=== PATIENT | male | born 1955 | race Hispanic/Latino ===

== ENCOUNTER 2020-05-19 19:21 | Emergency (ER) | payer OTHER ==
[~2020-05-19] VITALS: Ht 165.1 cm; Wt 77.1 kg
--- NOTE | 2020-05-19 19:28 | Emergency Department Note ---
History of Present Illnes History of Present Illness Chief Complaint: COVID PUI History of Present Illness This is a 64 year old male with a recent diagnosis of COVID-19 virus presents to the ED for evaluation of back pain and left shoulder/chest pain. Seen at bedside nontoxic appearing . Patient with prior h/o of CAD. Historian: Patient Arrival Mode: Car Onset (how long ago): day(s) (4) Location: posterior chest wall Radiation: Reports non-radiation Severity: moderate Duration (how long): day(s) (4) Timing of current episode: constant Progression: worsening Chronicity: new Context: Reports recent illness Relieving factors: none Exacerbating factors: none Associated symptoms: Reports cough, Reports shortness of breath; Denies chest pain Treatments prior to arrival: none Past Medical/Family History Physician Review I have reviewed the patient's past medical and family history. Any updates have been documented here. Past Medical History Recent Fever: Yes Clinical Suspicion of Infectio: Yes New/Unexplained Change in Ment: No Past Medical History: CAD Past Surgical History: None Social History Smoking Cessation: Never Smoker Alcohol Use: None Any Illegal Drug Use: No Review of Systems Review of Systems Constitutional: Reports no symptoms EENTM: Reports no symptoms Cardiovascular: Reports no symptoms Respiratory: Reports dyspnea Gastrointestinal: Reports no symptoms Genitourinary: Reports no symptoms Musculoskeletal: Reports no symptoms Integumentary: Reports no symptoms Neurological: Reports no symptoms Psychological: Reports no symptoms Endocrine: Reports no symptoms Hematological/Lymphatic: Reports no symptoms Physical Exam Related Data Allergies: Coded Allergies: Penicillins (Verified Allergy, Intermediate, RESPIRATORY DISTRESS/RASH, 05/19/20) Vital signs reviewed: Yes Physical Exam CONSTITUTIONAL Constitutional: Present well-developed, Present well-nourished HENT HENT: Present normocephalic, Present atraumatic, Present oropharynx clear/[address], Present nose normal HENT L/R: Present left ext ear normal, Present right ext ear normal EYES Eyes: Reports PERRL, Reports conjunctivae normal NECK Neck: Present ROM normal PULMONARY Pulmonary: Present effort normal, Present breath sounds normal CARDIOVASCULAR Cardiovascular: Present regular rhythm, Present heart sounds normal, Present capillary refill normal, Present normal rate GASTROINTESTINAL Abdominal: Present soft, Present nontender, Present bowel sounds normal GENITOURINARY Genitourinary: Present exam deferred SKIN Skin: Present warm, Present dry MUSCULOSKELETAL Musculoskeletal: Present ROM normal NEUROLOGICAL Neurological: Present alert, Present oriented x 3, Present no gross motor or sensory deficits PSYCHOLOGICAL Psychological: Present mood/affect normal, Present judgement normal Results Laboratory Lab results reviewed: Yes Imaging Imaging results reviewed: Yes Impressions [place] [id number] Patient Name: MARY VELAZQUEZ MR #: [id number] : 1955 Age/Sex: 64/M Req #: [id number] Adm Physician: Ordered by: REMA DA SILVA DO Report #: [id number] Location: ER Room/Bed: Procedure: [id number] DX/CHEST SINGLE (PORTABLE) Exam Date: 05/19/20 Exam Time: 2045 REPORT STATUS: Signed EXAMINATION: CHEST SINGLE (PORTABLE) INDICATION: ^Y ^left chest wall discomfort ^[id number] ^2045 COMPARISON: None FINDINGS: TUBES and LINES: None. LUNGS: Normal lung volumes. Lungs are clear. No consolidations. PLEURA: No pleural effusion or pneumothorax. HEART AND MEDIASTINUM: The cardiomediastinal silhouette is unremarkable. Sternotomy wires and CABG changes. BONES AND SOFT TISSUES: No acute osseous lesion. Soft tissues are unremarkable. UPPER ABDOMEN: No free air under the diaphragm. IMPRESSION: No acute thoracic radiographic abnormality. Signed by: Willow Haines MD on 05/19/2020 10:14 PM Dictated By: WILLOW HAINES MD 13 Transcribed By: LYNDA on 05/19/202213 COPY TO: REMA DA SILVA DO~ Procedures 12 Lead ECG Interpretation ECG Interpretation : ECG: ECG 1 [employer]: Interpreted by ED physician Date: May 19, 2020 Time: 19:58 Prior ECG tracings: reviewed Rhythm: sinus rhythm Rate: normal BPM: 62 QRS axis: normal Conduction: right bundle branch block ST segments normal: Yes T waves normal: Yes Q waves: V1, V2 Clinical Impression: non-specific ECG Assessment & Plan Medical Decision Making MDM 64 yom with h/o CABG, recent dx of COVID-19 . Diff Dx of ACS, COVID-19 PUI ,URI, Assessment & Plan Final Impression: (1) COVID-19 (2) Atypical chest pain Depart Disposition: HOME, SELF-CARE REMA DA SILVA DO May 19, 2020 19:28
[2020-05-19] MEDS ORDERED: ASPIRIN 81 MG CHEW TAB PO ONE (19:45)
[2020-05-19 20:22] LABS: EOSINOPHILS % 0.2 % (0.0-6.0); HEMATOCRIT 42.5 % (38.2-49.6); HEMOGLOBIN 14.2 g/dL (14.0-18.0); LYMPHOCYTES # (AUTO) 1.5 (1.0-3.2); LYMPHOCYTES % 36.5 % (18.0-39.1); MEAN CORPUSCULAR HEMOGLOBIN 30.7 pg (28-32); MEAN CORPUSCULAR HGB CONC 33.4 g/dL (31-35); MEAN CORPUSCULAR VOLUME 91.8 fL (81-99); MONOCYTES # (AUTO) 0.6 (0.2-0.8); MONOCYTES % 13.2 % (4.4-11.3); NEUTROPHILS # (AUTO) 2.1 (2.1-6.9); NEUTROPHILS % 49.9 % (38.7-80.0); PLATELET COUNT 185 x10e3/uL (140-360); RED BLOOD COUNT 4.63 x10e6/uL (4.3-5.7); RED CELL DISTRIBUTION WIDTH 13.2 % (11.7-14.4)
[2020-05-19 20:42] LABS: ALANINE AMINOTRANSFERASE 30 IU/L (0-55); ALBUMIN 4.2 g/dL (3.5-5.0); ALBUMIN/GLOBULIN RATIO 1.2 (0.8-2.0); ALKALINE PHOSPHATASE 66 IU/L (40-150); ANION GAP 17.3 mmol/L (8-16); BLOOD UREA NITROGEN 12 mg/dL (7-26); BUN/CREATININE RATIO 13 (6-25); CALCIUM 9.2 mg/dL (8.4-10.2); CARBON DIOXIDE 23 mmol/L (22-29); CHLORIDE 104 mmol/L (98-107); CREATINE KINASE 54 IU/L (30-200); CREATININE, SERUM 0.89 mg/dL (0.72-1.25); EST GLOMERULAR FILTRATION RATE > 60 ML/MIN (60-); GLUCOSE 94 mg/dL (74-118); POTASSIUM 4.3 mmol/L (3.5-5.1); SODIUM 140 mmol/L (136-145)
--- OUTSIDE RECORDS SUMMARY | 2020-05-19 22:12 | XMS REPORT | Continuity of Care Document ---
Author Author [facility] t Organization [facility] Address [address] [place] [address] Phone Unavailable Care Team Providers Care Print Line Tailer Name Role Phone NONSTAFF PCP Unavailable Monse KIM, Kiko Attphys Gila KIM, Warren Attphys Randa Roy Attphys Smooth CAMERON Attphys Unavailable HAMPEL, DON Attphys Unavailable Randa Roy Admphys HAMPEL, DON Admphys Unavailable Payers Payer Name Policy Type Policy Number Effective Date Expiration Date Emani herrera [employer] [id number] 2018 00:00:00 [facility] [address] [id number] 2015 00:00:00 [facility] Problems Condition Name Condition Details Condition Category Status Onset Date Resolution Date Last Treatment Date Treating Clinician Comments Source NSTEMI NSTE AK Active 02/18/2019 [facility] Active 2019-02-18 00:00:00 2019-02-26 13:05:00 [facility] HEART ATTACK HEAR T ATTACK Active 02/18/2019 [facility] Diagnosis Active 2019-02-18 00:00:00 2019-02-18 15:01:00 Abel Stinson CAD CAD Active 04/15/2013 [facility] Active 2013-04-15 00:00:00 2013-08-30 14:40:00 M sofia Stinson COMPLETE HEART VAS SCREENING C OMPLETE HEART VAS SCREENING Active 03/27/2013 [facility] Active 2013-03-27 09: 00:00 2013-03-27 09:10:00 Abel Stinson 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 Active Problem 02/28/2017 Corazon Murrieta Problem Active 2017-02-28 02:45:24 Royal rial Milad Hypercholesteremia Hype rcholesteremia Active Problem 02/28/2017 Corazon Murreita Problem Active 2017-02-28 02:45:24 Abel Stinson Hypothyroid Hypo thyroid Active Problem 02/28/2017 Corazon Murrieta Problem Active 2017-02-28 02:45:24 Abel Stinson Nonrheumatic tricuspid valve disorder Nonrheumatic tricuspid valve disorder Active Problem 02/28/2017 Corazon Murrieta Problem Active 2017-02-28 02:45:24 [facility] ial [facility] Nonrheumatic mitral (valve) insufficiency Nonrheumatic mitral (valve) insufficiency Active Problem 02/28/2017 Corazon Murrieta Problem Active 2017-02-28 02:45:24 Memor ial Milad LVH (left ventricular hypertrophy) due to hypertensive disease LVH (left ventricular hypertrophy) due to hypertensive disease Active Problem 02/28/2017 Corazon Edwardsgunjan Problem Active 2017-02-28 02:45:2 4 Abel Stinson Atheroscler of [place] artery of both legs with intermi t claudication Atheroscler of [place] artery of both legs with intermit claudication Active Problem 02/28/2017 Corazon Edwardsgunjan Problem Active 2017-02-28 02:45:24 Abel Stinson Carotid arterial disease Acevedo tid arterial disease Active Problem 02/28/2017 Corazon Munguialuis daniel Problem Active 20 11-03-06 02:45:24 Abel Stinson Exercise-induced shortness of breath Exercise-induced shortness of breath Active Problem 02/28/2017 Corazon Munguiaoudi Problem Ac tive 2017-02-28 02:45:24 [facility] Abnormal EKG Abno rmal EKG Active Problem 02/28/2017 Mohamed O Ezraoudi Problem Active 2017-02-28 02:45:24 [facility] Angina pectoris Opal na pectoris Active Problem 09/29/2015 Mohamed O Ezraoudi Problem Active 2015-09-29 03:45:01 [facility] Atherosclerosis of coronary artery bypass graft with a ngina pectoris 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 Active Problem 09/29/2015 Mohamed O Ezraoudi Problem Active 2015-09-29 03:45:01 [facility] Mitral regurgitation Mitr al regurgitation Active Problem 09/29/2015 Mohamed O Ezraoudi Problem Active 2015-09-29 03:45:01 [facility] Hypercholesterolemia Hype rcholesterolemia Active Problem 09/29/2015 Mohamed O Ezraoudi Problem Active 2015-09-29 03:45:01 [facility] Hypothyroidism Hypo thyroidism Active Problem 09/29/2015 Navyaamed O Jerrydi Problem Active 2015-09-29 03:45:01 [facility] Atherosclerosis of [place] arteries of th e extremities with intermittent claudication Atherosclerosis of [place] arteries of the extremities with intermittent claudication Active Problem 09/29/2015 Navyaamed O Ezraoudi Problem Active 2015-09-29 03:45:01 Royalkortney whitlock Milad Carotid art occ w/o infarc Car otid art occ w/o infarc Active Problem 09/29/2015 Navyaamed O Ezraoudi Problem Active 2015-09-29 03:45:01 [facility] Hypercholesteremia Hype rcholesteremia Active Problem 01/05/2016 Navyaamed O Ezraoudi Problem Active 2016-01-05 02:45:01 [facility] Abnormal EKG Abno rmal EKG Active Problem 09/29/2015 Navyaamed O Ezraoudi Problem Active 2015-09-29 03:45:01 [facility] Exercise-induced shortness of breath Exercise-induced shortness of breath Active Problem 09/29/2015 Navyaamed O Ezraoudi Problem Ac tive 2015-09-29 03:45:01 [facility] NON-ST ELEVATION (NSTEMI) MYOCARDIAL INF NON-ST ELEVATION (NSTEMI) MYOCARDIAL INF Active [facility] Active 2019-02-26 13:05:00 [facility] Allergies, Adverse Reactions, Alerts Allergy Name Allergy Type Status Severity Reaction(s) Onset Date Inacti ve Date Treating Clinician Comments Source Penicillins DA Active AK 2019-02-15 00:00:00 [facility] Penicillin Allergy to Substance Active Mild SWELLING 2015-10-01 00:00:0 0 [facility] Penicillin Penicillin Active Hives/Flare up 2014-04-30 00:00:00 [facility] Penicillins DA Active [place] 2014-04-19 00:00:00 [facility] penicillins penicillins Active [facility] Social History Social Habit Start Date Stop Date Quantity Comments Source Smoking 2016-07-20 00:00:00 2016-07-20 00:00:00 [facility] Medications Ordered Medication Name Filled Medication Name Start Date Stop Da te Current Medication? Ordering Clinician Indication Dosage Frequency Signature (SIG) Comments Components Source Nitroglycerin 0.4 MG Sublingual Tablet 2019-02-20 16:10:00 Yes 0.4 mg = 1 tab, SL, Q5Min, PRN Chest pain, # 25 tab, 1 Refill(s) [facility] clopidogrel 75 mg oral tablet 2019-02-20 16:10:00 Yes 75 mg = 1 tab, PO, Daily, # 30 tab, 11 Refill(s) Tierra asif Banks acetaminophen-codeine #3 2019-02-19 20:26:00 No Notes: Do not exceed 4gm/day of acetaminophen. (Same as: Tylenol with Codeine # 3) [facility] Ondansetron 2019-02-19 20:26:00 No Notes: (Same as: Conrad) MEDICATION WASTE Product Size: 4 mg Product Wasted: ___ mg [facility] Acetaminophen 2019-02-19 20:26:00 No Notes: Do not exceed 4 gm/day. (Same as: Tylenol) [facility] Sodium Chloride 0.9% IV 750 mL 2019-02-19 20:26:00 No 750 mL, Rate: 75 ml/hr, Infuse over: 10 hr, Route: IV, Dosing Weight 59.091 kg, Total Volume: 750, Start date: 02/19/19 15:26:00 CDT, Duration: 10 hr, Stop date: 02/20/19 1:25:00 CDT, 1.66, m2 [facility] Milad Aspirin 2019-02-19 17:00:00 No Notes: Do not crush or chew. (Same As: Ecotrin) Abel Stinson 24 HR Metoprolol Tartrate 25 MG Extended Release Tablet [Top rol] 2019-02-19 14:00:00 No Notes: (Same as: Toprol XL) D o Not Crush Abel Stinson Plavix 2019-02-19 14:00:00 No Notes: (Same As: Plavix) Abel Stinson Crestor 2019-02-19 02:00:00 No Notes: Same as Crestor [facility] Mil[facility] Aspirin 2019-02-18 22:18:00 No Notes: Do not crush or chew. (Same As: Ecotrin) Abel Stinson Lovenox 2019-02-18 22:16:00 No 60 mg, Route: SUB-Q, ONCE, Dosing Weight 59.091, kg, Start date: 02/18/19 17:16:00 CDT, Stop date: 02/18/19 17:16:00 CDT [facility] Banks tamsulosin 0.4 mg oral capsule 2019-02-18 22:01:00 Yes 0.4 mg = 1 cap, PO, Daily, # 30 cap, 0 Refill(s) [facility] clopidogrel 75 MG Oral Tablet [Plavix] 2019-02-18 22:01:00 No 75 mg = 1 tab, PO, Daily, # 30 tab, 0 Refill(s) [facility] Milad atorvastatin 40 MG Oral Tablet [Lipitor] 2019-02-18 22:01:00 Yes 40 mg = 1 tab, PO, Bedtime, # 90 tab, 1 [facility] MG Oral Tablet [CLAIMS ACCOUNT MANAGER Thyroid] 2019-02-18 22:01:00 Yes 60 mg = 1 tab, PO, Daily, 0 Refill(s) [facility] 81 MG Chewable Tablet 2019-02-18 22:01:00 Yes 81 mg = 1 tab, PO, Daily, tab, 0 Refill(s) Abel shannon metoprolol succinate 25 mg oral capsule, extended release 2019-02-18 22:01:00 Yes 25 mg = 1 cap, PO, Daily, 0 Refi ll(s) Abel Stinson Lovenox 2019-02-18 21:55:00 No Notes: Nurse to ensure documentation of patient education per anticoagulation policy. (Same as: Lovenox) [facility] Saline Flush 0.9% 2019-02-18 19:05:00 No Notes: (Same as: BD Posiflush) [facility] C[facility] 2017-02-28 02:45:24 Yes Taylor Murrieta 1 t ablet [facility] Metoprolol Succinate ER 2016-12-23 02:45:07 Yes Taylor rivas TAKE ONE (1) TABLET(S) BY MOUTH ONCE A DAY. Memor sondra Banks Clopidogrel Bisulfate 2016-01-02 02:45:52 Yes Taylor Munguiaoudi 1 tablet [facility] Clopidogrel Bisulfate 2016-01-02 02:45:02 Yes Taylor Edwardsdi 1 tablet [facility] Metoprolol Succinate 2014-10-21 03:46:03 Yes Taylor Edwardsdi 1 tablet [facility] Aspirin Adult Low Strength 2014-05-08 03:00:34 Yes Allen Murrieta 1 tablet [facility] Thyroid 2014-05-08 03:00:34 Yes Corazon Edwardsdi 1 tablet [facility] Aspirin 81 Mg Tab.chew Aspirin 81 Mg Tab.chew Yes 81 Daily [facility] Clopidogrel Bisulfate (Clopidogrel) 75 Mg Tablet Clopi dogrel Bisulfate (Clopidogrel) 75 Mg Tablet Yes 75 Daily [facility] Losartan Potassium 25 Mg Tablet Losartan Potassium 25 Mg Tablet Yes 50 Daily [facility] Metoprolol Tartrate 25 Mg Tablet Metoprolol Tartrate 25 Mg Tablet Yes 25 Daily [facility] Rosuvastatin Calcium (Crestor) 20 Mg Tablet Rosuvastat in Calcium (Crestor) 20 Mg Tablet Yes 20 Daily [facility] Tamsulosin Hcl (Flomax*) 0.4 Mg Cap Tamsulosin Hcl (Flomax*) 0.4 Mg C ap Yes .4 Before Supper [facility] Thyroid,Pork ([place] Thyroid) 60 Mg Tablet Thyroid,Por k ([place] Thyroid) 60 Mg Tablet Yes 60 Daily [facility] Alfuzosin Hcl 10 Mg Tab.er.24h, 10 Mg Oral Alfuzosin H cl 10 Mg Tab.er.24h, 10 Mg Oral 2018-01-09 00:00:00 No 10 Daily [facility] Hydrocodone Bit/Acetaminophen (Metz 7.5-325 Tablet) 1 Each Tablet, 1 Ea Oral Hydrocodone Bit/Acetaminophen (Metz 7.5-325 Tablet) 1 Each Tablet, 1 Ea Oral 2018-01-09 00:00:00 No 1 Every 6 Hours as nee ded for Pain [facility] Levofloxacin (Levaquin) 500 Mg Tablet, 500 Mg Oral Lev ofloxacin (Levaquin) 500 Mg Tablet, 500 Mg Oral 2018-01-09 00:00:00 No 500 D aily [facility] Ondansetron (Zofran Odt) 4 Mg Tab.rapdis, 4 Mg Oral On dansetron (Zofran Odt) 4 Mg Tab.rapdis, 4 Mg Oral 2018-01-09 00:00:00 No 4 Every 6 Hours as needed for Pain [facility] Vital Signs Vital Name Observation Time Observation Value Comments Source Systolic (mm Hg) 2019-02-20 13:07:00 Royal rial Banks Diastolic (mm Hg) 2019-02-20 13:07:00 Mem orial Milad Respitory Rate 2019-02-20 13:07:00 Memori al Milad Temperature Oral (F) 2019-02-20 13:07:00 98.6 F [facility] Heart Rate 2019-02-20 13:07:00 [facility] Respitory Rate 2019-02-20 09:00:00 Memori al [facility] Heart Rate 2019-02-20 09:00:00 [facility] Temperature Oral (F) 2019-02-20 09:00:00 98.6 F [facility] Systolic (mm Hg) 2019-02-20 09:00:00 Royal rial Milad Diastolic (mm Hg) 2019-02-20 09:00:00 Mem orial [facility] Heart Rate 2019-02-20 05:07:00 [facility] Respitory Rate 2019-02-20 05:07:00 Memori al Mil[facility] Temperature Oral (F) 2019-02-20 05:07:00 98.5 F [facility] Systolic (mm Hg) 2019-02-20 05:07:00 Royal rial Banks Diastolic (mm Hg) 2019-02-20 05:07:00 Mem orial Milad Height 2019-02-18 21:55:00 165.1 cm [facility] BMI Calculated 2019-02-18 21:55:00 Memori al [facility] Weight 2019-02-18 21:55:00 [facility] Height 2019-02-18 18:52:00 165.1 cm [facility] Weight 2019-02-18 18:52:00 [facility] BMI Calculated 2019-02-18 18:52:00 [facility] Weight 2014-04-30 20:00:00 [facility] Height 2014-04-30 20:00:00 [facility] Temperature Oral (F) 2014-04-30 20:00:00 96.7 F [facility] Heart Rate 2014-04-30 20:00:00 [facility] Diastolic (mm Hg) 2014-04-30 20:00:00 Mem orial Milad Systolic (mm Hg) 2014-04-30 20:00:00 Royal whitlock [facility] Height 2013-03-27 15:13:00 165.1 cm [facility] Weight 2013-03-27 15:13:00 [facility] Height 2013-03-27 15:08:00 167.64 cm [facility] Weight 2013-03-27 15:08:00 [facility] Procedures This patient has no known procedures. Encounters Start Date/Time End Date/Time Encounter Type Admission Type [facility] Care Department Encounter ID Source 2019-07-23 10:36:01 2019-07-23 13:13:24 [facility] [id number] 2019-07-10 09:13:59 2019-07-10 10:51:08 [facility] [id number] 2019-06-28 10:23:43 2019-06-28 10:38:43 Office Visit Warren Yeh i [facility] [id number] 2019-02-18 13:43:05 2019-02-20 12:50:00 Outpatient Mirta Roy MHSE MHSE [id number] 2019-02-18 15:22:00 2019-02-18 13:43:00 Inpatient E MHSE CAR [id number] 2018-11-24 20:10:00 2018-11-24 22:15:00 Departed Emergency Room [address] [facility] [id number] [facility] 2018-01-16 08:50:00 2018-01-17 13:45:00 Discharged Inpatient DON SNYDER [facility] [id number] [facility] 2017-03-28 10:48:00 2017-03-29 16:03:[address] [facility] [id number] [facility] 2017-01-11 09:14:00 2017-01-11 09:14:00 Outpatient Corazon Murrieta [place] [id number] [employer] 2016-12-22 17:01:00 2016-12-22 17:01:00 Outpatient Corazon Murrieta MD [place] [id number] [employer] 2016-10-14 14:53:00 2016-10-14 14:53:00 Outpatient MD TEETEE Shetty MD [place] [id number] [employer] 2016-10-12 12:24:00 2016-10-12 12:24:00 Outpatient MD TEETEE Shetty MD [place] [id number] [employer] 2016-09-28 17:17:00 2016-09-28 17:17:00 Outpatient MD TEETEE Shetty MD [place] [id number] [employer] 2016-01-04 10:12:00 2016-01-04 10:12:00 Outpatient MD TEETEE Shetty MD [place] [id number] [employer] 2015-12-31 15:39:00 2015-12-31 15:39:00 Outpatient MD TEETEE Shetty MD [place] [id number] [employer] 2015-12-31 15:31:00 2015-12-31 15:31:00 Outpatient MD TEETEE Shetty MD [place] [id number] [employer] 2015-12-31 15:28:00 2015-12-31 15:28:00 Outpatient MD TEETEE Shetty MD [place] [id number] [employer] 2015-12-28 15:13:00 2015-12-28 15:13:00 Outpatient MD TEETEE Shetty MD [place] [id number] [employer] 2015-09-28 14:53:00 2015-09-28 14:53:00 Outpatient MD TEETEE Shetty MD [place] [id number] [employer] 2014-10-20 08:54:00 2014-10-20 08:54:00 [place] [id number] [employer] 2014-04-30 15:00:00 2014-04-30 15:00:00 [place] [id number] [employer] Results Test Description Test Time Test Comments Results Result Comments Source LIPIDS 2019-02-20 09:50:00 48 Domonique amaro Banks LIPIDS 2019-02-20 09:50:00 Test Item VLDL (test code = VLDL) 14 1 [facility] [id number] 09:50:0067[facility] WtfiqmbQHOEPL3276-84-01 09:50:00* Test Item Value Reference Range Interpretation Comments CHD Risk (test code = CHD Risk) 2.69 1 4.00-7.30 Memorial [id number] 09:50:67724Maobkajo GkpqmboSHYGOY9654-01-79 09:50:0071[facility] HermannCARDIAC [id number] 19:10:91417Mxtsuauk Milad CARDIAC [id number] 19:10:002.10[facility] HermannCHEM [id number] 19:10:88839Peopjvyi HermannCHEM [id number] 19:10:0093[facility] HermannCHEM [id number] 19:10:009.2[facility] HermannCHEM [id number] 19:10:004.1 [facility] HermannCHEM [id number] 19:10:0025[facility] HermannCHEM PANEL 2019-02-18 19:10:008.2[facility] HermannCHEM [id number] 19:10:28508Rzcwxdyk HermannCHEM YCRIZ1109-40-20 19:10:000.87Mem[facility] HermannCHEM [id number] 19:10:0015Mem[facility] HermannCHEM [id number] 19:10:89125Xrshgukp HermannCHEM [id number] 19:10:0093[facility] HermannCHEM RWBHI0108-77-12 19:10:003.8 [facility] HermannCHEM [id number] 19:10:0038[facility] HermannCHEM PANEL 2019-02-18 19:10:0028Mem[facility] HermannCHEM [id number] 19:10:0082Mem[facility] HermannCHEM [id number] 19:10:000.6[facility] HermannCHEM [id number] 19:10:00* Test Item Value Reference Range Interpretation Comments B/C Ratio (test code = B/C Ratio) 17 1 6-25 [facility] HermannCHEM [id number] 19:10:009.1[facility] HermannCHEM PANEL 2019-02-18 19:10:004.4[facility] HermannCHEM [id number] 19:10:00* Test Item Value Reference Range Interpretation Comments A/G Ratio (test code = A/G Ratio) 0.9 1 0.7-1.6 [facility] [id number] 19:10:00* Test Item Value Reference Range Interpretation Comments PTT (test code = PTT) 41.5 s 22.9-35.8 [facility] FhzudhnJLLZZSJQNT6233-04-25 19:10:0092.6[facility] HermannHEMATOLOGY 2019-02-18 19:10:0016.0[facility] EphlwenAPLOQQUCGM7778-48-47 19:10:005.25[facility] SvsqgamELOIDBPIBX2067-38-61 19:10:0048.7[facility]orial CbcjomdDNBSIQBDND5308-56-88 19:10:00* Test Item Value Reference Range Interpretation Comments MCH (test code = MCH) 30.4 pg 27.0-31.0 [facility] XdgeeuyUJRVQCMORM8776-31-81 19:10:006.6[facility] HermannHEMATOLOGY 2019-02-18 19:10:55230Usnkmott JrvilmyQSFENLXRNN7774-24-37 19:10:0013.7[facility]orial HjbhvauJNVWUMVVST7346-29-83 19:10:009.1[facility] UtsviyiSGOENROQDO4365-71-91 19:10:0032.8[facility]orial ZfkepwkECKRTLNMTR1735-90-09 19:10:00* Test Item Value Reference Range Interpretation Comments INR (test code = INR) 0.93 1 0.85-1.17 [facility] ApaptftQMJXFNMZOM6587-09-53 19:10:00* Test Item Value Reference Range Interpretation Comments PT (test code = PT) 12.3 s 12.0-14.7 [facility] ZkplvrpJFCKRVKEOD9213-59-41 19:10:001.0[facility] HermannHEMATOLOGY 2019-02-18 19:10:004.3[facility] ExgqhnmCMSWDLINXT1888-46-27 19:10:001.4Memorial CldbzqyMWKERQMZJF4690-54-01 19:10:000.2Memorial ZpzkqkwCYWRUKEVZY2896-32-48 19:10:0013.2[facility]orial BnmamcfJIKJUPUJCD4619-08-55 19:10:0020.5[facility] Milad [id number] 19:10:0065.1[facility]orial YwkzohrCFYLZDXYKX2368-08-61 19:10:00 0.9Memorial RjzwqhiGZVVJUNJWU9658-82-92 19:10:000.1[facility] HermannTROPONIN-I 2019-02-17 13:11:00* Test Item Value Reference Range Interpretation Comments TROPONIN-I (test code = TROPI) 2.290 ng/mL 0-0.045 [id number] 13:43:00* Test Item Value Reference Range Interpretation Comments TROPONIN-I (test code = TROPI) 6.280 ng/mL 0-0.045 Results called to [facility] V.LAB.DRP 02/16/19 1343 [id number] 08:59:00* Test Item Value Reference Range Interpretation Comments GLYCOSYLATED HEMOGLOBIN (HA1C) (test code = GLYHGB) 5.8 % HbA1 4. 8-6.0 N ESTIMATED AVERAGE GLUCOSE (test code = EAG) 120 MG/DL PT WANTS TO SPEAK WITH DR BEFORE LAB DRAW JOSE M DE LEON .V.LAB.AB02/16/19 0437 COMPREHENSIVE METABOLIC [id number] 08:45:00* Test Item Value Reference Range Interpretation Comments SODIUM (test code = NA) 142 mmol/L 136-145 N POTASSIUM (test code = K) 4.2 mmol/L 3.5-5.1 N CHLORIDE (test code = CL) 109.0 mmol/L 98-107 H CARBON DIOXIDE (test code = CO2) 27.0 mmol/L 21-32 N ANION GAP (test code = GAP) 10.2 10-20 N GLUCOSE (test code = GLU) 99 mg/dL 74-106 N BLOOD UREA NITROGEN (test code = BUN) 16 mg/dL 7-18 N GLOMERULAR FILTRATION RATE (test code = GFR) > 60 mL/min >=60 Estimated GFR by using Modified MDRD formula.Chronic kidney disease is defined as either kidney damageor GFR <60 mL/min/1.73 m2 for >3 months. CREATININE (test code = CREAT) 0.90 mg/dL 0.7-1.3 N BUN/CREATININE RATIO (test code = BUN/CREA) 17.8 10-20 N TOTAL PROTEIN (test code = PROT) 7.6 gram/dL 6.4-8.2 N ALBUMIN (test code = ALB) 3.7 g/dL 3.4-5.0 N GLOBULIN (test code = GLOB) 3.9 gram/dL 2.7-4.2 N ALBUMIN/GLOBULIN RATIO (test code = A/G) 1.0 0.75-1.50 N CALCIUM (test code = CA) 8.9 mg/dL 8.5-10.1 N BILIRUBIN TOTAL (test code = BILT) 0.90 mg/dL 0.0-1.0 N SGOT/AST (test code = AST) 42 IUnit/L 15-37 H SGPT/ALT (test code = ALT) 35 IUnit/L 12-78 N ALKALINE PHOSPHATASE TOTAL (test code = ALKP) 82 IUnit/L 45-117 N Note change in reference range due to change in reagent. PT WANTS TO SPEAK WITH BEFORE BLOOD DRAW JOSE M SANFORD 02/16/19 0436 LIPID PROFILE (CORONARY RISK)2019-02-16 08:45:00* Test Item Value Reference Range Interpretation Comments TRIGLYCERIDES (test code = TRIG) 81 mg/dL 20-150 N CHOLESTEROL (test code = CHOL) 127 mg/dL 0-200 N CHOLESTEROL/HDL RATIO (test code = CHOLHDL) 2.0 RATIO 0-4.9 N RISK ASSOCIATED WITH CHOL/HDL RATIOS: Risk Male Female1/2 AVERAGE 3.43 3.27AVERAGE 4.97 4.442X AVERAGE 9.55 7.053X AVERAGE 23.39 11.04 REFERENCE VALUE IS RELATED TO RISK LEVELS ASRECOMMENDED BY THE [place]. HEART, LUNG, AND BLOOD INST. HDL CHOLESTEROL (test code = HDL) 52 mg/dL 40-60 N LIPOPROTEIN LDL (test code = LDL) 74 mg/dL 100-129 L Reference Interval: mg/dL mmol/L Optimal <100 <2.6Near/above optimal 100-129 2.6- 3.3Borderline High 130-159 3.4-4.1High 160-189 4.1-4.9Very High >=190 >=4.9========= This LDL result is a direct measurement.========= PT WANTS TO SPEAK WITH DR BEFORE BLOOD DRAW JOSE M DE LEON .V.LAB. 02/16/19 0436 COMPREHENSIVE METABOLIC [id number] 08:38:00* Test Item Value Reference Range Interpretation Comments SODIUM (test code = NA) 142 mmol/L 136-145 N POTASSIUM (test code = K) 4.2 mmol/L 3.5-5.1 N CHLORIDE (test code = CL) 109.0 mmol/L 98-107 H CARBON DIOXIDE (test code = CO2) mmol/L 21-32 ANION GAP (test code = GAP) 10-20 GLUCOSE (test code = GLU) mg/dL 74-106 BLOOD UREA NITROGEN (test code = BUN) mg/dL 7-18 GLOMERULAR FILTRATION RATE (test code = GFR) mL/min >=60 CREATININE (test code = CREAT) mg/dL 0.7-1.3 BUN/CREATININE RATIO (test code = BUN/CREA) 10-20 TOTAL PROTEIN (test code = PROT) gram/dL 6.4-8.2 ALBUMIN (test code = ALB) g/dL 3.4-5.0 GLOBULIN (test code = GLOB) gram/dL 2.7-4.2 ALBUMIN/GLOBULIN RATIO (test code = A/G) 0.75-1.50 CALCIUM (test code = CA) mg/dL 8.5-10.1 BILIRUBIN TOTAL (test code = BILT) mg/dL 0.0-1.0 SGOT/AST (test code = AST) IUnit/L 15-37 SGPT/ALT (test code = ALT) IUnit/L 12-78 ALKALINE PHOSPHATASE TOTAL (test code = ALKP) IUnit/L 45-117 PT WANTS TO SPEAK WITH DR BEFORE BLOOD DRAW JOSE M DE LEON .V.LAB. 02/16/19 0436 LIPID PROFILE (CORONARY RISK)2019-02-16 08:38:00* Test Item Value Reference Range Interpretation Comments TRIGLYCERIDES (test code = TRIG) mg/dL 20-150 CHOLESTEROL (test code = CHOL) mg/dL 0-200 CHOLESTEROL/HDL RATIO (test code = CHOLHDL) RATIO 0-4.9 HDL CHOLESTEROL (test code = HDL) mg/dL 40-60 LIPOPROTEIN LDL (test code = LDL) mg/dL 100-129 PT WANTS TO SPEAK WITH DR BEFORE BLOOD DRAW JOSE M DE LEON .V.LAB.AB 02/16/19 [id number] W/O [id number] 08:15:00* Test Item Value Reference Range Interpretation Comments WHITE BLOOD CELL (test code = WBC) 8.5 K/mm3 4.5-12.5 N RED BLOOD CELL (test code = RBC) 4.83 mill/mm3 4.0-5.8 N HEMOGLOBIN (test code = HGB) 14.7 gram/dL 13.0-17.5 N HEMATOCRIT (test code = HCT) 44.1 % 42.0-52.0 N MEAN CELL VOLUME (test code = MCV) 91.3 fL 80-98 N MEAN CELL HGB (test code = MCH) 30.4 picogram 27.0-33.0 N MEAN CELL HGB CONCETRATION (test code = MCHC) 33.3 gram/dL 33.0-36. 0 N RED CELL DISTRIBUTION WIDTH (test code = RDW) 13.2 % 11.6-16. 2 N PLATELET COUNT (test code = PLT) 203 K/mm3 150-450 N MEAN PLATELET VOLUME (test code = MPV) 10.6 fL 6.7-11.0 N PT WANTS TO SPRAK DR BEFORE LABS JOSE M DE LEON .V.LAB.02/16/19 0437TROPONIN-I 2019-02-15 21:10:00* Test Item Value Reference Range Interpretation Comments TROPONIN-I (test code = TROPI) 2.680 ng/mL 0-0.045 HH COMMENTS TO SENIOR ENVIRONMENTAL CONSULTANT: COLLECT 3 HOURS AFTER PREVIOUS [id number]-[id number] 16:23:00* Test Item Value Reference Range Interpretation Comments D-DIMER (test code = DDIMER) 386.00 ng/mLFEU 0-500 N Clinical Cut-off value for D-Dimer is 500 ng/mL FEU. Comment: The [employer] D-Dimer assay is intended for use asan aid in the diagnosis of venous thromboembolism (VTE)[deep vein thrombosis (DVT) or pulmonary embolism (PE)].The measurement of D-Dimer should not be used as an aid inthe diagnosis of VTE, in patient with: -Therapeutic dose anticoagulant therapy for >24 hours -Fibrinolytic therapy within previous 7 days -Trauma or surgery within previous 4 weeks -Disseminated malignancies -Aortic aneurysm -Sepsis, severe infections, pneumonia, severe skin infections -Liver cirrhosis - [id number] 16:13:00* Test Item Value Reference Range Interpretation Comments TROPONIN-I (test code = TROPI) 1.380 ng/mL 0-0.045 RESULT VERIFIED BY REPEAT ANALYSIS COMMENTS TO SENIOR ENVIRONMENTAL CONSULTANT: COLLECT 3 HOURS AFTER PREVIOUS SAMPLEBASIC METABOLIC [id number] 12:20:00* Test Item Value Reference Range Interpretation Comments SODIUM (test code = NA) 141 mmol/L 136-145 N POTASSIUM (test code = K) 4.0 mmol/L 3.5-5.1 N CHLORIDE (test code = CL) 109.0 mmol/L 98-107 H CARBON DIOXIDE (test code = CO2) 25.0 mmol/L 21-32 N ANION GAP (test code = GAP) 11.0 10-20 N GLUCOSE (test code = GLU) 122 mg/dL 74-106 H BLOOD UREA NITROGEN (test code = BUN) 14 mg/dL 7-18 N GLOMERULAR FILTRATION RATE (test code = GFR) > 60 mL/min >=60 Estimated GFR by using Modified MDRD formula.Chronic kidney disease is defined as either kidney damageor GFR <60 mL/min/1.73 m2 for >3 months. CREATININE (test code = CREAT) 0.80 mg/dL 0.7-1.3 N BUN/CREATININE RATIO (test code = BUN/CREA) 17.5 10-20 N CALCIUM (test code = CA) 8.8 mg/dL 8.5-10.1 N [id number] 12:20:00* Test Item Value Reference Range Interpretation Comments TROPONIN-I (test code = TROPI) 0.498 ng/mL 0-0.045 Results called to [id number] by KENRICK 02/15/19 1220Critical results verified and read back by Nurse? Ambreen [id number] 12:09:00* Test Item Value Reference Range Interpretation Comments MAGNESIUM (test code = MAG) 2.2 mg/dL 1.8-2.4 N [id number] 12:08:00* Test Item Value Reference Range Interpretation Comments D-DIMER (test code = DDIMER) 365.00 ng/mLFEU 0-500 N Clinical Cut-off value for D-Dimer is 500 ng/mL FEU. Comment: The [employer] D-Dimer assay is intended for use asan aid in the diagnosis of venous thromboembolism (VTE)[deep vein thrombosis (DVT) or pulmonary embolism (PE)].The measurement of D-Dimer should not be used as an aid inthe diagnosis of VTE, in patient with: -Therapeutic dose anticoagulant therapy for >24 hours -Fibrinolytic therapy within previous 7 days -Trauma or surgery within previous 4 weeks -Disseminated malignancies -Aortic aneurysm -Sepsis, severe infections, pneumonia, severe skin infections -Liver cirrhosis - BASIC METABOLIC [id number] 12:06:00* Test Item Value Reference Range Interpretation Comments SODIUM (test code = NA) 141 mmol/L 136-145 N POTASSIUM (test code = K) 4.0 mmol/L 3.5-5.1 N CHLORIDE (test code = CL) 109.0 mmol/L 98-107 H CARBON DIOXIDE (test code = CO2) mmol/L 21-32 ANION GAP (test code = GAP) 10-20 GLUCOSE (test code = GLU) mg/dL 74-106 BLOOD UREA NITROGEN (test code = BUN) mg/dL 7-18 GLOMERULAR FILTRATION RATE (test code = GFR) mL/min >=60 CREATININE (test code = CREAT) mg/dL 0.7-1.3 BUN/CREATININE RATIO (test code = BUN/CREA) 10-20 CALCIUM (test code = CA) mg/dL 8.5-10.1 [id number] 12:06:00* Test Item Value Reference Range Interpretation Comments TROPONIN-I (test code = TROPI) ng/mL 0-0.045 CBC W/O [id number] 11:59:00* Test Item Value Reference Range Interpretation Comments WHITE BLOOD CELL (test code = WBC) 6.6 K/mm3 4.5-12.5 N RED BLOOD CELL (test code = RBC) 4.78 mill/mm3 4.0-5.8 N HEMOGLOBIN (test code = HGB) 14.6 gram/dL 13.0-17.5 N HEMATOCRIT (test code = HCT) 42.8 % 42.0-52.0 N MEAN CELL VOLUME (test code = MCV) 89.5 fL 80-98 N MEAN CELL HGB (test code = MCH) 30.5 picogram 27.0-33.0 N MEAN CELL HGB CONCETRATION (test code = MCHC) 34.1 gram/dL 33.0-36. 0 N RED CELL DISTRIBUTION WIDTH (test code = RDW) 12.9 % 11.6-16. 2 N PLATELET COUNT (test code = PLT) 210 K/mm3 150-450 N MEAN PLATELET VOLUME (test code = MPV) 10.6 fL 6.7-11.0 N TROPONIN I [id number] 11:54:00* Test Item Value Reference Range Interpretation Comments TROPONIN I RAPID (test code = TROPIRAP) 0.23 ng/mL <0.08 H H Please Note New Reference Range 0.00-0.079 ng/mL - Negative>or= 0.08 ng/mL - Positive The use of serial sampling and testing protocol is arecommended practice.An elevated troponin level alone is often not sufficient fordiagnosis of myocardial infarction. Troponin results obtained by different assays may vary.Evaluation of the extent of myocardial damage based onincrease of troponin would be valid only if similarmethodology is used. - XR CHEST 1 [id number] 11:50:00 FAX: Jn Lewis MD [phone] [place]: B St: REG Name: MARY KELLEY [facility] : [birth year] Age/S: 63/M [address] [facility] Unit #: [id number] Loc: [place] [address] Phys: Jn Lewis MD Acct: [id number] Dis Date: Status: REG ER PHONE #: [phone] Exam Date: 02/15/2019 1128 FAX #: [phone] Reason: CHEST PAIN EXAMS: CPT CODE: [id number] XR CHEST 1 V 88046 TECHNIQUE - XR CHEST 1 V . COMPARISON: Single view of the chest HISTORY: 63 years Male CHEST PAIN FINDINGS: Lungs: No nodules. No air space or interstitial lung disease. Lungs are normal in volume. Mediastinum and lj: No enlargement or other mass. Median sternotomy. Cardiovascular structures: No cardiomeg kelly. No abnormalities in vascular structures. Pleura/CP an gles: Clear. No pneumothorax. Bones: No osseous abnormalities. Soft tissues: No abnormalities. Tubes and lines: None. Other: None. IMPRESSION: No acute cardio pulmonary abnormalities. at 1150 Reported and signed by: Willow Garcia CC: Jn Lewis MD Technolog ist: Los DIAL(R) Trnscrd Date/Time/By : 02/15/2019 (1150) : By: Caitlin Orig Print D/T: S: 02/15/2019 (115 4) PAGE 1 Signed Report SHOULDER LEFT [id number] 02:21:00 [place] [address] Patient Name: MARY VELAZQUEZ MR #: [id number] : 1955 Age/Sex: 63/M Req #: [id number] Adm Physician: Ordered by: TEODORO CAMERON MD Report #: [id number] Location: ER Room/Bed: Procedure: [id number] 0010 DX/SHOULDER LEFT COMPLETE Exam Date: 11/25/18 E xam Time: 129 REPORT STATUS: Crystal d Shoulder left limited CPT code: 00361 Indication: Fall. Tech nique: Internal and external images of the left shoulder obtained without comp arison. Findings: There is no current dislocation. No evidence of fra cture involving humeral head. Visualized proximal shaft is intact. The clavi soniya is intact. No fracture evident involving the visualized portion of the sc apula. Portions are overlapped by the ribs on all images however. Visualized ribs and median sternotomy wires are intact. IMPRESSION: No evidenc e of acute fracture or dislocation involving left shoulder. Signed by: Dr. Kia Thomson MD on 11/25/2018 2:24 AM Dictated By: KIA THOMSON MD 3 Transcribed By: LYNDA on 11/25/18223 COPY TO: TEODORO CAMERON MD WRIST COMPLETE [id number] 02:06:00 [place] [address] Patient Name: MARY VELAZQUEZ MR #: [id number] : 1955 Age/Sex: 63/M Req #: [id number] Adm Physician: Ordered by: TEODORO CAMERON MD Report #: [id number] Location: ER Room/Bed: Procedure: 0303- 0008 DX/WRIST COMPLETE LEFT Exam Date: 11/25/18 Exam Time: 129 REPORT STATUS: Signed Exam: Hand and Wrist X-Rays (left) History: s/p fall [id number] Y Comparison: None. Findings: The area of pain was not indicated or marked. Bones: No fracture or malalignment. Subchondral cyst in the lunate. Punctate sclerotic focus in the proximal metacarpal of the se cond digit is suggestive of a bone island. Joints: Joint spaces preserved . No joint space narrowing or osteophytic lipping. Soft Tissues: No abno rmal soft tissue calcification or soft tissue defect. Impression: No acute osseous abnormality. Signed by: Dr. Kia Thomson MD on 2018 2:15 AM Dictated By: KIA THOMSON MD 4 Transcribed By: LYNDA on 11/25/18214 COPY TO: TEODORO CAMERON MD HAND 3+ VIEWS [id number] 02:06:00 [place] [address] Patient Name: MARY VELAZQUEZ MR #: [id number] : 1955 Age/Sex: 63/M Req #: [id number] [facility] Physician: Ordered by: TEODORO CAMERON MD Report #: [id number] Location: ER Room/Bed: Procedure: [id number] 0009 DX/HAND 3+ VIEWS LEFT Exam Date: 11/25/18 Exam Time: 129 REPORT STATUS: Signed Exam: Hand and Wrist X-Rays (left) History: s/p fall [id number] Y Comparison: None. Findings: The area of pain was not indicated or marked. Bones: No fracture or malalignment. Subchondral cyst in the lunate. Punctate sclerotic focus in the proximal metacarpal of the sec ond digit is suggestive of a bone island. Joints: Joint spaces preserved. No joint space narrowing or osteophytic lipping. Soft Tissues: No abnor mal soft tissue calcification or soft tissue defect. Impression: No acute osseous abnormality. Signed by: Dr. Kia Thomson MD on 2:15 AM Dictated By: KIA THOMSON MD 4 Transcribed By: LYNDA on 11/25/18214 COPY TO: TEODORO CAMERON MD HIP LEFT 2-3 VW (+/- PELVIS) 2018-11-24 21:41:00 [place] [address] Patient Name: MARY VELAZQUEZ MR #: [id number] : 1955 Age/Sex: 63/M Req #: [id number] Adm Physician: Ordered by: TEODORO CAMERON MD Report #: [id number] Location: ER Room/Bed: Procedure: [id number] 0034 DX/HIP LEFT 2-3 VW (+/- PELVIS) Exam Date: Time: REPORT STATUS: Signed H ip complete Indication: Left hip pain after fall s/p injury Y T echnique: AP and frogleg views of left hip obtained. Comparison: None Findings: Medical devices: Penile prosthesis. Bones: The cortex appears intact throughout. Trochanters appear intact. Adjacent pubic rami appear i ntact. Lower lumbar spine demonstrates no abnormalities. Joints: No degen erative changes. Soft tissues: Unremarkable. IMPRESSION: Left hip properly located. No acute traumatic pathology. Signed by: Dr. Kia Thomson MD on 11/24/2018 9:43 PM Dictated By: KIA THOMSON MD Electro nically Signed By: KIA THOMSON MD on 11/24/182142 Transcribed By: JIA Fox on 11/24/182142 COPY TO: TEODORO CAMERON MD LOWER LEG [id number] 21:06:00 [place] [address] Patient Name: MARY VELAZQUEZ MR #: [id number] : 1955 Age/Sex: 63/M Req #: [id number] Adm Physician: Ordered by: REMA GAMBLE CLAIMS ACCOUNT MANAGER Report #: [id number] Location: ER Room/Bed: Procedure: [id number] DX/LOWER LEG LEFT Exam Date: 11/24/18 Exam Time: 205 1 REPORT STATUS: Signed Tibia fi bula left CPT code: 93687 Indication: Table fell on leg Technique : AP and lateral views of the left tibia bowel on leg and fibula obtained. Comparison: None Findings: No evidence of fracture or dislocation. A well-corticated ossicle lies posterior to the lateral femoral condyle measu ring 7 mm. There is no evidence of donor site. No degenerative changes of the knee or visualized portion of the ankle. There is approximately 10 cm of subcutaneous soft tissue swelling adjacent to the middle diaphyseal third of t he fibula. No radiopaque foreign bodies in this region. There are punctate rad iodensities over the distal femur which may represent dust on the cassette. IMPRESSION: No acute fracture or dislocation. Signed by: Dr. Lisandro Thomson MD on 11/24/2018 9:09 PM Dictated By: KIA THOMSON MD El ectronically Signed By: KIA THOMSON MD on 11/24/182108 Transcribed By: Scot HAINES on 11/24/182108 COPY TO: REMA GAMBLE CLAIMS ACCOUNT MANAGER Wound [id number] 09:46:00* Test Item Value Reference Range Interpretation Comments Wound Culture (test code = 6462-6) Organism: STAPHYLOCOCCUS SP COAG NEG [facility] CenterSodium [id number] 07:45:00* Test Item Value Reference Range Interpretation Comments Sodium Level (test code = 2951-2) 141 136-145 [facility] Ixrou9151-95-62 07:45:00* Test Item Value Reference Range Interpretation Comments Potassium Level (test code = 2823-3) 4.5 3.5-5.1 [facility] HospitalChloride Wesfr4929-76-54 07:45:00* Test Item Value Reference Range Interpretation Comments Chloride Level (test code = 2075-0) 108 98-107 H [facility] HospitalCarbon Dioxide Vwsjk3337-76-47 07:45:00* Test Item Value Reference Range Interpretation Comments Carbon Dioxide Level (test code = 2028-9) 26 - [facility] HospitalAnion [id number] 07:45:00* Test Item Value Reference Range Interpretation Comments Anion Gap (test code = 08038-1) 11.5 8-16 [facility] HospitalBlood Urea Xmxuvgru2564-24-40 07:45:00* Test Item Value Reference Range Interpretation Comments Blood Urea Nitrogen (test code = 3094-0) 17 7- [facility] HospitalCreatinine2018-04-25 07:45:00* Test Item Value Reference Range Interpretation Comments Creatinine (test code = 2160-0) 1.03 0.72-1.25 [facility] HospitalBUN/Creatinine Wppzh7865-77-47 07:45:00* Test Item Value Reference Range Interpretation Comments BUN/Creatinine Ratio (test code = 3097-3) 17 6- [facility] HospitalEstimat Glomerular Filtration Rate 2018-01-17 07:45:00* Test Item Value Reference Range Interpretation Comments Estimat Glomerular Filtration Rate (test code = 33322-6) 60- >60 Ranges were taken from the National Kidney Disease Education Program and the [facility] [facility] [employer] literature.Reference ranges:60 or greater: Yydrbh93-94 ( for 3 consecutive months): Chronic kidney disease 15 or less: Kidney failureColumbus Community HospitalGlucose Nszyw0613-64-60 07:45:00* Test Item Value Reference Range Interpretation Comments Glucose Level (test code = PEC3949) 102 74-118 [facility] HospitalCalcium Gpelw8547-97-83 07:45:00* Test Item Value Reference Range Interpretation Comments Calcium Level (test code = 47741-1) 8.7 8.4-10.2 [facility] HospitalWhite Blood Mcnjp7091-90-31 07:06:00* Test Item Value Reference Range Interpretation Comments White Blood Count (test code = 6690-2) 9.73 4.8-10.8 [facility] HospitalRed Blood Aipcw1916-64-86 07:06:00* Test Item Value Reference Range Interpretation Comments Red Blood Count (test code = 789-8) 4.21 4.3-5.7 L [facility] HospitalHemoglobin2018-04-25 07:06:00* Test Item Value Reference Range Interpretation Comments Hemoglobin (test code = 63639-8) 13.0 14.0-18.0 L [facility] HospitalHematocrit2018-04-25 07:06:00* Test Item Value Reference Range Interpretation Comments Hematocrit (test code = 4544-3) 38.0 38.2-49.6 L [facility] HospitalMean Corpuscular Dftzgo3927-70-79 07:06:00* Test Item Value Reference Range Interpretation Comments Mean Corpuscular Volume (test code = 787-2) 90.3 81-99 [facility] HospitalMean Corpuscular Nlbxlxhwhm1482-01-78 07:06:00* Test Item Value Reference Range Interpretation Comments Mean Corpuscular Hemoglobin (test code = 785-6) 30.9 28-32 [facility] HospitalMean Corpuscular Hemoglobin Concent 2018-01-17 07:06:00* Test Item Value Reference Range Interpretation Comments Mean Corpuscular Hemoglobin Concent (test code = 786-4) 34.2 31-35 [facility] HospitalRed Cell Distribution Uiywr0793-23-61 07:06:00* Test Item Value Reference Range Interpretation Comments Red Cell Distribution Width (test code = 66296-5) 13.4 11.7 -14.4 [facility] HospitalPlatelet Tkvns9380-90-33 07:06:00* Test Item Value Reference Range Interpretation Comments Platelet Count (test code = 777-3) 177 140-360 [facility] HospitalNeutrophils (%) (Auto)2018-01-17 07:06:00 * Test Item Value Reference Range Interpretation Comments Neutrophils (%) (Auto) (test code = 88067-8) 74.3 38.7-80.0 [facility] HospitalLymphocytes (%) (Auto)2018-01-17 07:06:00 * Test Item Value Reference Range Interpretation Comments Lymphocytes (%) (Auto) (test code = 736-9) 15.6 18.0-39.1 L [facility] HospitalMonocytes (%) (Auto)2018-01-17 07:06:00* Test Item Value Reference Range Interpretation Comments Monocytes (%) (Auto) (test code = 5905-5) 8.9 4.4-11.3 [facility] HospitalEosinophils (%) (Auto)2018-01-17 07:06:00 * Test Item Value Reference Range Interpretation Comments Eosinophils (%) (Auto) (test code = 713-8) 0.7 0.0-6.0 [facility] HospitalBasophils (%) (Auto)2018-01-17 07:06:00* Test Item Value Reference Range Interpretation Comments Basophils (%) (Auto) (test code = 706-2) 0.2 0.0-1.0 [facility] HospitalIM GRANULOCYTES %2018-01-17 07:06:00* Test Item Value Reference Range Interpretation Comments IM GRANULOCYTES % (test code = IM GRANULOCYTES %) 0.3 0.0- 1.0 [facility] HospitalNeutrophils # (Auto)2018-01-17 07:06:00* Test Item Value Reference Range Interpretation Comments Neutrophils # (Auto) (test code = 751-8) 7.2 2.1-6.9 H [facility] HospitalLymphocytes # (Auto)2018-01-17 07:06:00* Test Item Value Reference Range Interpretation Comments Lymphocytes # (Auto) (test code = 13125-1) 1.5 1.0-3.2 [facility] HospitalMonocytes # (Auto)2018-01-17 07:06:00* Test Item Value Reference Range Interpretation Comments Monocytes # (Auto) (test code = 742-7) 0.9 0.2-0.8 H [facility] HospitalEosinophils # (Auto)2018-01-17 07:06:00* Test Item Value Reference Range Interpretation Comments Eosinophils # (Auto) (test code = 711-2) 0.1 0.0-0.4 [facility] HospitalBasophils # (Auto)2018-01-17 07:06:00* Test Item Value Reference Range Interpretation Comments Basophils # (Auto) (test code = 704-7) 0.0 0.0-0.1 [facility] HospitalAbsolute Immature Granulocyte (auto 2018-01-17 07:06:00* Test Item Value Reference Range Interpretation Comments Absolute Immature Granulocyte (auto (chanda t code = Absolute Immature Granulocyte (auto) 0.03 0-0.1 [facility] HospitalMagnesium Xtwtv3098-76-60 19:44:00* Test Item Value Reference Range Interpretation Comments Magnesium Level (test code = 60079-1) 1.8 1.3-2.1 [facility] HospitalCHEMISTRY2013-07-03 15:23:002.41[facility] ExqmxhxGBPBQEYVX4253-41-95 15:23:0080[facility] AwpabhbNOHERAZNM7244-66-25 15:23:39569Kyseqsxv GduzwjlLHEWYKWGP5675-85-96 15:23:0068[facility] PMYDCNISA2451-70-01 15:23:0078[facility] LykqxnhDMYWFBLSZ1412-47-73 15:23:005.3 [facility] JvllbgoCRYJRVDZCD0457-02-88 15:23:001.5[facility] F/U [facility] [address] [place] [address] Patient Name: MARY VELAZQUEZ MR #: [id number] : 1955 Age/Sex: 62/M Req #: [id number] Adm Physician: DON HERNANDEZ MD Ordered by: DON HERNANDEZ MD Report #: [id number] Location: MED/SURG Room/Bed: [facility] Procedure: [id number] US/US PE LVIC (NON OB) AUGUSTIN OR F/U Exam Date: Exam Time: REPORT STATUS: Signed PROCEDURE: US PELVIC (NON OB) AUGUSTIN OR F/U COMPARI SON: CT abdomen and pelvis 08/06/2015. INDICATIONS: Post Void To Eval For Urinary Retention TECHNIQUE: Grayscale transverse and sagittal transabdominal images were obtained of the pelvis. FINDINGS: Urinary bladder : Normal contour. Bilateral ureteral jets are visualized. Prevoid 5.9 x 6.6 x 6.8 cm. Volume 138.6 cc. Post void 5.3 x 4.8 x 7.7 cm. Volume 101.7 cc. Focal well-circumscribed 5.0 x 4.8 x 5.4 cm anechoic region is present ant erior to the urinary bladder. The prostate is not visualized. CONCLU MARY: Post void residual volume may represent urinary retention. Anec hoic focus anterior to the bladder may represent a prosthesis reservoir. Dictated by: Willow Doll M.D. on 01/17/2018 at 14:33 Electronically a pproved by: Willow Doll M.D. on 01/17/2018 at 14:33 Dictated By: WILLOW DOLL MD [address] scribed By: EDUARDO on 01/17/18 1433 COPY TO: DON HERNANDEZ MD CHEST 2 VIEWS [place] [address] [place] [address] Patient Name: MARY VELAZQUEZ MR #: [id number] : 1955 Age/Sex: 62/M Req #: [id number] Adm Physician: Ordered by: DON HERNANDEZ MD Report #: [id number] Location: OR Room/Bed: Procedure: [id number] DX/CHEST 2 VIEWS Exam Date: Exam Time: 1150 REPORT STATUS: Signed PROCEDURE: Frontal and lateral views of the chest. COMPARISON: Chest 2 v iews 10/01/2015. INDICATIONS: PRE OPERATIVE CHEST X-RAY FOR UROLOGY SURGER Y FINDINGS: Lines/tubes: None. Lungs: The lungs are well inf lated and clear. There is no evidence of pneumonia or pulmonary edema. Pleura: There is no pleural effusion or pneumothorax. Heart and mediastin um: The heart and the mediastinum are normal. Bones: No acute bony abnor mality. Degenerative changes of the thoracic spine median sternotomy wires. IMPRESSION: No acute radiographic abnormality. Dictated by: Bisi Doll M.D. on 01/15/2018 at 12:27 Electronically approved by: Willow Doll M.D. on 01/15/2018 at 12:27 Dictated By: WILLOW DOLL MD E lectronically Signed By: WILLOW DOLL MD on 01/15/18 1227 Transcribed By: EDUARDO on 01/15/18 1227 COPY TO: DON HERNANDEZ MD
--- OUTSIDE RECORDS SUMMARY | 2020-05-19 22:12 | XMS REPORT | Continuity of Care Document ---
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 COMPLETE HEART VAS SCREENING Active 03/27/[address] 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 Active Problem 02/28/2017 [facility] Hypercholesteremia Active Problem 02/28/2017 Corazon Murrieta Hypothyroid Active Problem 02/28/2017 Coraz[facility] Murri[facility] Nonrheumatic tricuspid valve disorder Active Problem 02/2017 Coraz[facility] Murri[facility] Nonrheumatic mitral (valve) insufficiency Active Problem 02/28/2017 [facility] LVH (left ventricular hypertrophy) due t o hypertensive disease Active Prob jamil 02/28/2017 [facility] Mur[facility] Atheroscler of [place] artery of both leg s with intermit claudication Active Prob jamil 02/28/2017 [facility] Mur[facility] Carotid arterial disease Active Problem 02/28/2017 [facility]az[facility] Murrieta Exercise-induced shortness of breath Active Problem 02/2017 Corazon Murrieta Abnormal EKG Active Problem 02/28/2017 [facility]az[facility] Mur[facility] Angina pectoris Active Problem 09/29/2015 [facility]az[facility] Murrieta Atherosclerosis of coronary artery bypas s graft with angina pectoris Active Prob jamil 09/29/2015 [facility] Mitral regurgitation Active Problem 09/29/2015 Corazon Murrieta Hypercholesterolemia Active Problem 09/29/2015 Coraz[facility] Murrieta Hypothyroidism Active Problem 09/29/2015 Corazon Murrieta Atherosclerosis of [place] arteries of th e extremities with intermittent claudication Active Problem 09/29/2015 Corazon Murrieta Carotid art occ w/o infarc Act juana Problem 01/2016 Corazon Murrieta Hypercholesteremia Active Problem 01/05/2016 Coraz[facility] Murrieta Abnormal EKG Active Problem 09/29/2015 Corazon Murrieta Exercise-induced shortness of breath Active Problem 01/2016 Corazon Murrieta NON-ST ELEVATION (NSTEMI) MYOCARDIAL INF Active [facility] Medications Medication Details Route Status Patient Instructions Ordering Provider Order Date Source Nitroglycerin 0.4 MG Sublingual Tablet 0.4 mg = 1 tab, SL, Q5Min, PRN Chest pain, # 25 tab, 1 Refill(s) Active 02/20/2019 [facility] clopidogrel 75 mg oral tablet 75 mg = 1 tab, PO, Daily, # 30 tab, 11 Refill(s) Active 02/20/2019 [facility] acetaminophen-codeine #3 Notes : Do not exceed 4gm/day of acetaminophen. (Same as: Tylenol with Codeine # 3) No Longer Active 02/19/2019 [facility] Ondansetron Notes: (Same as: Madhavi younger) MEDICATION WASTE Product Size: 4 mg Product Wasted: ___ mg No Longer Active 02/19/2019 [facility] Acetaminophen Notes: Do not ex ceed 4 gm/day. (Same as: Tylenol) No Longer Active 02/19/2019 [facility] Sodium Chloride 0.9% IV 750 mL 750 mL, Rate: 75 ml/hr, Infuse over: 10 hr, Route: IV, Dosing Weight 59.091 kg, Total Volume: 750, Start date: 02/19/19 15:26:00 CDT, Duration: 10 hr, Stop date: 02/20/19 1:25:00 CDT, 1.66, m2 No Longer Active 02/19/2019 [facility] Aspirin Notes: Do not crush or chew. (Same As: Ecotrin) No Longer Active 02/19/2019 [facility] 24 HR Metoprolol Tartrate 25 MG Extended Release Tablet [Toprol] Notes: (Same as: Toprol XL) Do Not Crush No Longer Active 02/19/2019 [facility] Plavix Notes: (Same As: Plavix) No Longer Active 02/19/2019 [facility] Crestor Notes: Same as Crestor No Longer Active 02/19/2019 [facility] Aspirin Notes: Do not crush or chew. (Same As: Ecotrin) Inactive 02/18/2019 [facility] Lovenox 60 mg, Route: SUB-Q, O NCE, Dosing Weight 59.091, kg, Start date: 02/18/19 17:16:00 CDT, Stop date: 02/18/19 17:16:00 CDT Inactive 02/18/2019 [facility] tamsulosin 0.4 mg oral capsule 0.4 mg = 1 cap, PO, Daily, # 30 cap, 0 Refill(s) Active 02/18/2019 [facility] clopidogrel 75 MG Oral Tablet [Plavix] 75 mg = 1 tab, PO, Daily, # 30 tab, 0 Refill(s) No Longer Active 02/18/2019 [facility] atorvastatin 40 MG Oral Tablet [Lipitor] 40 mg = 1 tab, PO, Bedtime, # 90 tab, 1 Refill(s) Active 02/18/2019 [facility] thyroid (CUSTODIAL) 60 MG Oral Tablet [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 (Same as: Lovenox) Inactive 02/18/2019 [facility] Saline Flush 0.9% Notes: (Same as: BD Posiflush) No Longer Active 02/18/2019 [facility] Crestor 1 tablet Orally Active 20 mg Orally [facility] a [facility] [place] Clopidogrel Bisulfate 1 tablet Orally Active 75 mg Orally Once a day Ezragunjan [place] Mariza Murrieta Metoprolol Succinate 1 tablet Orally Active 25 MG Orally Once a day Ezragunjan Murrieta Aspirin Adult Low Strength 1 t ablet Orally Active 81 MG Orally Once a day Ezragunjan [place] Mariza Murrieta Thyroid 1 tablet Orally Active 60 MG Orally [facility] Clopidogrel Bisulfate 1 tablet Orally Active 75 MG Orally Once a day Ezragunjan Murrieta Metoprolol Succinate ER TAKE O NE (1) TABLET(S) BY MOUTH ONCE A DAY. Orally Active 25 MG Orally Once a day Ezraprashant Murrieta Allergies, Adverse Reactions, Alerts Substance Category Reaction Severity Reaction type Status Date Reported Comments Source Penicillin Adverse Reaction Hives/Flare up Adverse Reactio n Active 04/30/2014 [facility]az[facility] Murrieta penicillins Assertion Drug allergy Active [facility] Immunizations No Data Provided for This Section Results Order Name Results Value Reference Range Date Interpretation Comments Source LIPIDS HDL 48 >=61 mg/dL 02/20/2019 [facility] LIPIDS VLDL 14 02/20/2019 [facility] LIPIDS LDL (Calculated) 67 <=99 mg/dL 02/20/2019 [facility] LIPIDS CHD Risk 2.69 4.00 - 7.30 02/20/2019 [facility] LIPIDS Chol 129 <=199 mg/dL 02/20/2019 [facility] LIPIDS Trig 71 <=149 mg/dL 02/20/2019 [facility] CARDIAC ENZYMES BNP 119 <=100 pg/mL 02/18/2019 [facility] CARDIAC ENZYMES Troponin-I 2.10 0.00 - 0.40 02/18/2019 Result Comment: Critical Result(s) caruso d to bennie murcia RN at 02/18/2019 14:53 by sm. Read back OK. [facility] CHEM PANEL Lipase Lvl 148 73 - 393 02/18/2019 [facility] CHEM PANEL eGFR 93 02/18/2019 Result Comment: The eGFR is calculated using the CKD-EPI formula. In most young, healthy individuals the eGFR will be >90 mL/min/1.73m2. The eGFR declines with age. An eGFR of 60-89 may be normal in some populations, particularly the elderly, for whom the CKD-EPI formula has not been extensively validated. Use of the eGFR is not recommended in the following populations:

Individuals with unstable creatinine concentrations, including patients and those with serious co-morbid conditions.

Patients with extremes in muscle mass or diet.

The data above are obtained from the National Kidney Disease Education Program (NKDEP) which additionally recommends that when the eGFR is used in patients with extremes of body mass index for purposes of drug dosing, the eGFR should be multiplied by the estimated BMI. [facility] CHEM PANEL Calcium Lvl 9.2 8.5 - 10.5 02/18/2019 [facility] CHEM PANEL Potassium Lvl 4.1 3.5 - 5.1 02/18/2019 [facility] CHEM PANEL CO2 25 24 - 32 02/18/2019 [facility] CHEM PANEL Total Protein 8.2 6.4 - 8.4 02/18/2019 [facility] CHEM PANEL Chloride Lvl 107 95 - 109 02/18/2019 [facility] CHEM PANEL Creatinine Lvl 0.87 0.50 - 1.40 02/18/2019 [facility] CHEM PANEL BUN 15 7 - 22 02/18/2019 [facility] CHEM PANEL Sodium Lvl 137 135 - 145 02/18/2019 [facility] CHEM PANEL Glucose Lvl 93 70 - 99 02/18/2019 [facility] CHEM PANEL Albumin Lvl 3.8 3.5 - 5.0 02/18/2019 [facility] CHEM PANEL ALT 38 0 - 65 02/18/2019 [facility] CHEM PANEL AST 28 0 - 37 02/18/2019 [facility] CHEM PANEL Alk Phos 82 39 - 136 02/18/2019 [facility] CHEM PANEL Bili Total 0.6 0.2 - 1.3 02/18/2019 [facility] CHEM PANEL B/C Ratio 17 6 - 25 02/18/2019 [facility] CHEM PANEL AGAP 9.1 10.0 - 20.0 02/18/2019 [facility] CHEM PANEL Globulin 4.4 2.7 - 4.2 02/18/2019 [facility] CHEM PANEL A/G Ratio 0.9 0.7 - 1.6 02/18/2019 [facility] HEMATOLOGY PTT 41.5 22.9 - 35.8 02/18/2019 [facility] HEMATOLOGY MCV 92.6 80.0 - 94.0 02/18/2019 [facility] HEMATOLOGY Hgb 16.0 14.0 - 18.0 02/18/2019 [facility] HEMATOLOGY RBC 5.25 4.70 - 6.10 02/18/2019 [facility] HEMATOLOGY Hct 48.7 42.0 - 54.0 02/18/2019 [facility] HEMATOLOGY MCH 30.4 27.0 - 31.0 02/18/2019 [facility] HEMATOLOGY WBC 6.6 3.7 - 10.4 02/18/2019 [facility] HEMATOLOGY Platelet 239 133 - 450 02/18/2019 [facility] HEMATOLOGY RDW 13.7 11.5 - 14.5 02/18/2019 [facility] HEMATOLOGY MPV 9.1 7.4 - 10.4 02/18/2019 [facility] HEMATOLOGY MCHC 32.8 32.0 - 36.0 02/18/2019 [facility] HEMATOLOGY INR 0.93 0.85 - 1.17 02/18/2019 [facility] HEMATOLOGY PT 12.3 12.0 - 14.7 02/18/2019 [facility] HEMATOLOGY Eosinophils 1.0 0.0 - 4.0 02/18/2019 [facility] HEMATOLOGY Neutrophils # 4.3 1.5 - 8.1 02/18/2019 [facility] HEMATOLOGY Lymphocytes # 1.4 1.0 - 5.5 02/18/2019 [facility] HEMATOLOGY Basophils 0.2 0.0 - 1.0 02/18/2019 [facility] HEMATOLOGY Monocytes 13.2 2.0 - 12.0 02/18/2019 [facility] [place] Lymphocytes 20.5 20.0 - 40.0 02/18/2019 [facility] HEMATOLOGY Segs 65.1 45.0 - 75.0 02/18/2019 [facility] [place] Monocytes # 0.9 0.0 - 0.8 02/18/2019 [facility] [place] Eosinophils # 0.1 0.0 - 0.5 02/18/2019 [facility] CHD Risk 2.41 4.00 - 7.30 03/27/[address] [facility] CHEMISTRY LDL 80 <=99 03/27/2013 Normal <sup>4</sup>Interpretive Data: Reference ranges are based on the clinical guidelines of the NHLBI National Cholesterol Education Program (ATP III, 2001). [facility] CHEMISTRY Chol 164 <=199 03/27/2013 Normal <sup>1</sup>Interpretive Data: Reference ranges are based on the clinical guidelines of the NHLBI National Cholesterol Education Program (ATP III, 2001). [facility] CHEMISTRY HDL 68 >=61 03/27/2013 Normal <sup>3</sup>Interpretive Data: Reference ranges are based on the clinical guidelines of the NHLBI National Cholesterol Education Program (ATP III, 2001). [facility] CHEMISTRY Trig 78 <=149 03/27/2013 Normal <sup>2</sup>Interpretive Data: Reference ranges are based on the clinical guidelines of the NHLBI National Cholesterol Education Program (ATP III, 2001). [facility] CHEMISTRY Hgb A1C 5.3 <=5.6 03/27/2013 Normal <sup>5</sup>Interpretive Data: The refer ence range is based on the clinical practice guidelines
of the [place] [employer] for diabetes screening;
levels of 5.7%-6.4% are indicative of pre-diabetes. [facility] IMMUNOLOGY CRP, High Sensitivity 1.5 03/27/2013 NA <sup>6</sup>Interpretive Data: Low Risk: <1.0 mg/L
Average Risk: 1.0 - 3.0 mg/L
High Risk: >10.0 mg/L [facility] Pathology Reports No Data Provided for This Section Diagnostic Reports Report Value Date Source Chest 1view DX XR CHEST 1 VIEW HISTORY: - chest pain. COMPARISON: None. FINDINGS: Prior sternotomy. Heart and vascular markings within limits of normal. Lung valdez are clear. No pleural abnormality. No significant skeletal abnormality. IMPRESSION: 1. No evidence of an active process. SL: [id number] 02/18/2019 [facility] Consultation Notes No Data Provided for This Section Discharge Summaries No Data Provided for This Section History and Physicals No Data Provided for This Section Vital Signs Vital Sign Value Date Comments Source Systolic (mm Hg) 127 02/20/2019 [facility] Diastolic (mm Hg) 66 02/20/2019 [facility] Respitory Rate 16 02/20/2019 [facility] Temperature Oral (F) 98.6 F 02/20/2019 [facility] Heart Rate 60 02/20/2019 [facility] Respitory Rate 16 02/20/2019 [facility] Heart Rate 64 02/20/2019 [facility] Temperature Oral (F) 98.6 F 02/20/2019 [facility] Systolic (mm Hg) 101 02/20/2019 [facility] Diastolic (mm Hg) 59 02/20/2019 [facility] Heart Rate 61 02/20/2019 [facility] Respitory Rate 16 02/20/2019 [facility] Temperature Oral (F) 98.5 F 02/20/2019 [facility] Systolic (mm Hg) 121 02/20/2019 [facility] Diastolic (mm Hg) 68 02/20/2019 [facility] Height 165.1 cm 02/18/2019 [facility] BMI Calculated 21.68 02/18/2019 [facility] Weight 59.091 02/18/2019 [facility] Height 165.1 cm 02/18/2019 [facility] Weight 59.091 02/18/2019 [facility] BMI Calculated 21.68 02/18/2019 [facility] Weight 130 04/30/2014 [facility] Height 65 0 04/30/2014 [facility] Temperature Oral (F) 96.7 F 04/30/2014 [facility] Heart Rate 53 04/30/2014 [facility] Diastolic (mm Hg) 70 04/30/2014 Coraz[facility] Murrieta Systolic (mm Hg) 132 04/30/2014 Corazon Murrieta Height 165.1 cm 03/27/[address] [facility] Weight 54.545 03/27/[address] [facility] Height 167.64 cm 03/27/[address] [facility] Weight 53.636 03/27/[address] [facility] Encounters Location Location Details Encounter Type Encounter Number Reason For Visit Attending Provider ADM Date DC Date Status Source [facility] Outpatient [id number] COMPLETE HEART VAS SCREENING DARRIUS SCALES 03/27/[address] [facility] Corazon Murrieta MD PA Unknown [id number] 04/30/20 14 04/30/2014 Corazon Murrieta MD PA Unknown [id number] 04/30/20 14 04/30/2014 Corazon Murrieta MD PA Unknown [id number] 04/30/20 14 04/30/2014 Corazon Murrieta MD PA Unknown [id number] 04/30/20 14 04/30/2014 Corazon Murrieta MD PA Unknown [id number] 04/30/20 14 04/30/2014 Corazon Murrieta MD PA Unknown [id number] 04/30/20 14 04/30/2014 Corazon Murrieta MD PA Unknown [id number] 04/30/20 14 04/30/2014 Corazon Murrieta MD PA Unknown [id number] 04/30/20 14 04/30/2014 Corazon Murrieta MD PA Unknown [id number] 04/30/20 14 04/30/2014 Corazon Murrieta MD PA Unknown [id number] 04/30/20 14 04/30/2014 Corazon Murrieta MD PA Unknown [id number] 04/30/20 14 04/30/2014 Corazon Murrieta MD PA Unknown [id number] 10/20/19 15 10/20/2014 Corazon Murrieta MD PA Unknown [id number] 10/20/19 15 10/20/2014 Corazon Murrieta MD PA Unknown [id number] 10/20/19 15 10/20/2014 Corazon Murrieta MD PA Unknown [id number] 10/20/19 15 10/20/2014 Corazon Murrieta MD PA Unknown [id number] 10/20/19 15 10/20/2014 Corazon Murrieta MD PA Unknown [id number] 10/20/19 15 10/20/2014 Corazon Murrieta MD PA Unknown [id number] 10/20/19 15 10/20/2014 Corazon Murrieta MD PA Unknown [id number] 10/20/19 15 10/20/2014 Corazon Murrieta MD PA Unknown [id number] 10/20/19 15 10/20/2014 Corazon Murrieta MD PA Unknown [id number] 10/20/19 15 10/20/2014 Corazon Murrieta MD PA Unknown [id number] 12/11/19 15 12/10/2014 Corazon Murrieta MD PA Unknown [id number] 12/11/19 15 12/10/2014 Corazon Murrieta MD PA Unknown [id number] 12/11/19 15 12/10/2014 Corazon Murrieta MD PA Unknown [id number] 12/11/19 15 12/10/2014 Corazon Murrieta MD PA Unknown [id number] 12/11/19 15 12/10/2014 Corazon Murrieta MD PA Unknown [id number] 12/11/19 15 12/10/2014 Corazon Murrieta MD PA Unknown [id number] 12/11/19 15 12/10/2014 Corazon Murrieta MD PA Unknown [id number] 12/11/19 15 12/10/2014 Corazon Murrieta MD PA Unknown [id number] 12/11/19 15 12/10/2014 Corazon Murrieta MD PA Unknown [id number] 09/28/19 16 09/28/2015 Corazon Murrieta MD PA Unknown [id number] 09/28/19 16 09/28/2015 Corazon Murrieta MD PA Unknown [id number] 09/28/19 16 09/28/2015 Coraozn Murrieta MD PA Unknown [id number] 09/28/19 16 09/28/2015 Corazon Murrieta MD PA Unknown [id number] 09/28/19 16 09/28/2015 Corazon Murrieta MD PA Unknown [id number] 09/28/19 16 09/28/2015 Corazon Murrieta MD PA Unknown [id number] 09/28/19 16 09/28/2015 Corazon Murrieta MD PA Unknown [id number] 09/28/19 16 09/28/2015 Corazon Murrieta MD PA Unknown [id number] 09/28/19 16 09/28/2015 Corazon Murrieta MD PA Unknown [id number] 12/28/19 16 12/28/2015 Corazon Murrieta MD PA Unknown [id number] 12/28/19 16 12/28/2015 Corazon Murrieta MD PA Unknown [id number] 12/28/19 16 12/28/2015 Corazon Murrieta MD PA Unknown [id number] 12/28/19 16 12/28/2015 Corazon Murrieta MD PA Unknown [id number] 12/28/19 16 12/28/2015 Corazon Murrieta MD PA Unknown [id number] 12/28/19 16 12/28/2015 Corazon Murrieta MD PA Unknown [id number] 12/28/19 16 12/28/2015 Corazon Murrieta MD PA Unknown [id number] 12/28/19 16 12/28/2015 Corazon Murrieta MD PA Unknown [id number] 12/31/19 16 12/31/2015 Corazon Murrieta MD PA Unknown [id number] 12/31/19 16 12/31/2015 Corazon Murrieta MD PA Unknown [id number] 12/31/19 16 12/31/2015 Corazon Murrieta MD PA Unknown [id number] 12/31/19 16 12/31/2015 Corazon Murrieta MD PA Unknown [id number] 12/31/19 16 12/31/2015 Corazon Murrieta MD PA Unknown [id number] 12/31/19 16 12/31/2015 Corazon Murrieta MD PA Unknown [id number] 12/31/19 16 12/31/2015 Corazon Murrieta MD PA Unknown [id number] 12/31/19 16 12/31/2015 Corazon Murrieta MD PA Unknown [id number] 12/31/19 16 12/31/2015 Corazon Murrieta MD PA Unknown [id number] 12/31/19 16 12/31/2015 Corazon Murrieta MD PA Unknown [id number] 12/31/19 16 12/31/2015 Corazon Murrieta MD PA Unknown [id number] 12/31/19 16 12/31/2015 Corazon Murrieta MD PA Unknown [id number] 12/31/19 16 12/31/2015 Corazon Murrieta MD PA Unknown [id number] 12/31/19 16 12/31/2015 Corazon Murrieta MD PA Unknown [id number] 12/31/19 16 12/31/2015 Corazon Murrieta MD PA Unknown [id number] 12/31/19 16 12/31/2015 Corazon Murrieta MD PA Unknown [id number] 12/31/19 16 12/31/2015 Corazon Murrieta MD PA Unknown [id number] 12/31/19 16 12/31/2015 Corazon Murrieta MD PA Unknown [id number] 12/31/19 16 12/31/2015 Corazon Murrieta MD PA Unknown [id number] 01/04/20 16 01/04/2016 Corazon Murrieta MD PA Unknown [id number] 01/04/20 16 01/04/2016 MD TEETEE Chaudhary Unknown [id number] 01/04/20 16 01/04/2016 Corazon Murrieta MD PA Unknown [id number] 01/04/20 16 01/04/2016 Corazon Murrieta MD PA Unknown [id number] 09/28/19 17 09/28/2016 MD TEETEE Chaudhary Unknown [id number] 09/28/19 17 09/28/2016 Corazon Murrieta MD PA Unknown [id number] 09/28/19 17 09/28/2016 MD TEETEE Chaudhary Unknown [id number] 10/12/19 17 10/12/2016 Corazon Murrieta MD PA Unknown [id number] 10/14/19 17 10/14/2016 Corazon Murrieta MD PA Unknown [id number] 10/14/19 17 10/14/[address] [facility] [id number] Mirta Amadoq 02/18/2019 02/20/2019 [facility] [id number] CAD IYAD YORDY Cancel [facility] Procedures No Data Provided for This Section Assessment and Plan Assessment and Plan Date Source Extracted from:Title: Clinical Document Author: Robin Murray MD Date: 02/20/19 Discharge Summary Date of Admission 02/18/2019 Date of Discharge 02/20/2019 Admission diagnosis NSTEMI CAD hx of CABG Discharge diagnosis CAD hx of CABG Brief hospital course 63-year-old man with a history of coronary artery disease status post triple bypass in 2012, He presented to [facility] w/ a NSTEMI, peak tpn 4, apparently had preseved LVEF on echo. He then came to for continuity of care since he follows with Dr Leyva. Cath showed Bypass graft GRIGSBY to LAD widely patent with distal anastomosis focal 50% SVG to diagonal widely patent SVG to obtuse marginal widely patent Critical RCA stenosis 99%. This was treated with a 2.5 x 20 Synergy drug- eluting stent He was maintained on DAPT and did well post PCI. For list of medications see medication reconciliation sheet Follow-up in [address] Leyva Diet cardiac Restrictions no heavy lifting Of note greater than 30 minutes has been used for discharge planning and discussing case with family and nursing. Extracted from:Title: Clinical Document Author: Robin Murray MD Date: 02/19/19 Progress Note Cardiology [facility] Impression: NSTEMI RCA 99% treated with 2.5 x 20 Synergy drug-eluting stent Remote history of CABG-patent GRIGSBY to LAD, SVG to diagonal, SVG to obtuse margin Hypertension Plan: Cath showed critical narrowing in the mid RCA. This was treated with a 2.5 x 20 Synergy stent Continue dual antiplatelet therapy Check lipids in a.m. continue statin. Subjective: Patient Seen and Examined. He denies chest pain or shortness of breath this morning he underwent cardiac cath this afternoon and stenting of the RCA Objective: Telemetry NSR Vitals and Temp: Vitals Tmp(F) Pulse BP RR SpO2 FIO2 02/19 15:29 ---- 53 114/59 - - 99 --- 02/19 15:24 ---- 64 118/64 - - 99 --- 02/19 11:28 98.0 60 148/72 1 6 98 --- 02/19 08:31 98.2 116 110/69 16 97 --- 02/19 04:00 98 65 114/64 16 98 --- 24 Hr Tmax: 98.2F (36.78c) at 02/19 08:3 1 Vital Signs are the last 5 in the past 48 hours. General: Awake and Alert, NAD HEENT: Neck Supple, No JVD CVS: Regular rate, Normal S1S2 LUNGS: CTA, No rales or wheezing ABD: Soft, Non-tender, + BS EXT: No edema, 2+ pedal pulses Skin: No ulcers Neuro: Awake and Alert, Oriented x 3 Labs (Last four charted values) WBC 6.6 (FEBRUARY 18) Hgb 16.0 (FEBRUARY 18) Hct 48.7 (FEBRUARY 18) Plt 239 (FEBRUARY 18) Na 137 (FEBRUARY 18) K 4.1 (FEBRUARY 18) CO2 25 (FEBRUARY 18) Cl 107 (FEBRUARY 18) Cr 0.87 (FEBRUARY 18) BUN 15 (FEBRUARY 18) Glucose Random 93 (FEBRUARY 18) Ca 9.2 (FEBRUARY 18) PT 12.3 (FEBRUARY 18) INR 0.93 (FEBRUARY 18) PTT H 41.5 (FEBRUARY 18) Troponin C 2.10 (FEBRUARY 18) Scheduled Meds (4): 02/19/19 aspirin 81 mg PO Q24H 02/19/19 clopidogrel (Plavix) 75 mg PO D aily 02/19/19 metoprolol (Toprol-XL 25 mg ora l tablet, extended release) 25 mg PO Daily 02/18/19 rosuvastatin (Crestor) 20 mg PO Bedtime Continuous Infusions (1): 02/19/19 Sodium Chloride 0.9% IV 750 mL 750 mL 75 ml/hr Extracted from:Title: Clinical Document Author: Robin Murray MD Date: 02/19/19 Left heart catheterization Selective bypass graft PCI of the RCA with drug-eluting stent Indication: NSTEMI Procedure details: The patient was prepped and draped in the usual sterile fashion. Local lidocaine was used in the right groin. The left femoral artery was cannulated via micropuncture technique and ultrasound .. A 5 [place] sheath was placed in the right femoral artery. A JL4 diagnostic catheter was used to cannulate the left coronary artery. Angiographic views were obtained. A JR4 catheter was used to engage the right coronary artery. Angiographic views were obtained. The JR4 catheter was used to engage the saphenous vein graft to diagonal, saphenous vein graft to obtuse marginal and GRIGSBY to LAD. The JR4 catheter was used to cross the aortic valve. Hemodynamics were obtained in the left ventricle. We then measured gradients across the aortic valve. After reviewing the diagnostic angiograms we note that the patient has patent bypass grafts. The [place] RCA is non-bypassed in the mid RCA has a focal 99% thrombotic lesion consistent with his non-STEMI. We upsized the sheath to a 6 [place] sheath bivalirudin was started. Initially we used a JR4 catheter. However this was damping. Therefore we switched to a JR4 sidehole guide. We used a 0.014 run-through wire to cross the critical narrowing. Initially a 2.0 x 12 balloon was used to predilate the lesion. We then used a 2.5 x 15 balloon. We subsequently used a 2.5 x 20 Synergy drug-eluting stent. The stent was deployed at 12 lois x 30 seconds. The stent was postdilated with a 2.5 balloon at 16 lois. Preintervention lesion was 99% with THELMA-3 flow. Postintervention lesion was 0% with THELMA-3 flow. There was no gradient. A left iliofemoral angiogram showed above bifurcation vascular access. Hemostasis was planned via manual pressure Total radiation dose 717 mgray Total dye load 90 Visipaque Moderate sedation time minutes Hemodynamics: Left ventricular end-diastolic pressure mm Hg Coronaries: Right dominant Left main-small caliber 50 to 60% narrowing LAD-proximal diffuse plaque we can see competitive flow from the saphenous vein graft to diagonal as well as GRIGSBY to LAD Circumflex-gives rise to small obtuse marginal 1 and obtuse marginal to competitive flow seen from the saphenous vein graft to obtuse marginal RCA-[place] RCA is a medium size vessel midportion is a 99% thrombotic lesion Bypass graft GRIGSBY to LAD widely patent SVG to diagonal widely patent SVG to obtuse marginal widely patent Conclusions: Critical RCA stenosis 99%. This was treated with a 2.5 x 20 Synergy drug- eluting stent Recommendation: Dual antiplatelet therapy with aspirin and Plavix for at least one year. Addendum by Robin Murray MD on 02/19/2019 15:40 anastomosis sight of grigsby to lad focal 50% Extracted from:Title: Clinical Document Author: Mirta Roy MD Date: 02/18/19 [facility] Initial Cardiology Admission Note Chief Complaint: Chest pain HPI: This is a 63-year-old man with a history of coronary artery disease status post triple bypass in 2012, hypertension, thyroid issues who presents with chest pain that occurred on . This was described as a heaviness radiating up to his neck that occurred while he was shopping. He took himself to [facility] where he was subsequently diagnosed with a non-STEMI. Cardiac catheterization they had been scheduled for tomorrow but the patient preferred to do it here so he left AGAINST MEDICAL ADVICE and came here to the ER for further assessment where he has been admitted for cardiac catheterization tomorrow after discussion with his primary survey party chief. He is currently chest pain-free and feels well His current troponin level is 2.10 He is currently asymtomatic His current troponin level is 2.10. His echocardiogram from 2017 shows a normal ejection fraction with impaired relaxation. His stress test from October 2018 is normal REVIEW OF SYSTEMS: CONSTITUTIONAL: No fever. No chills. No dizziness. No weakness. EYES: No pain, erythema, or discharge. No blurring of vision. EAR, NOSE AND THROAT: No sore throat, URI symptoms. No epistaxis. No tinnitus. CARDIOVASCULAR: No chest pain. No palpitations. No lower extremity edema. RESPIRATORY: No shortness of breath, cough, pain with respiration, or pleuritic chest pain. No hemoptysis. No dyspnea. No paroxysmal nocturnal dyspnea. GASTROINTESTINAL: No abdominal pain, nausea, diarrhea, vomiting. GENITOURINARY: No frequency, urgency, nocturia. No hematuria or dysuria. MUSCULOSKELETAL: No arthralgias or myalgias. INTEGUMENTARY: No swelling. No bruising. No contusions. No abrasions. No lymphangitis. NEUROLOGIC: No headache. No neck pain. No numbness or tingling of the extremities. No weakness. PSYCHIATRIC: No confusion. METABOLIC: No fatigue. No weakness. No history of thyroid, diabetes or adrenal problems. HEMATOLOGICAL: No bleeding. No petechiae. No bruising. ALLERGY: No asthma. No urticaria. Past Medical History Coronary artery disease status post triple bypass Hypertension Allergies: Allergies (1) Active Reaction penicillins None documented Medications: Medications (2) Active Scheduled Meds: None Unscheduled Meds: None PRN Meds (1): 02/18/19 sodium chloride (Saline Flush 0 .9%) 10 mL IVP PRN One Time Meds (1): 02/18/19 (Ordered) enoxaparin (Lovenox) 59.091 mg SUB-Q ONCE Continuous Infusions: None Home medication: Home Medications (6) Active aspirin 81 mg tablet, chewable 81 mg = 1 tab, PO, Daily Lipitor 40 mg oral tablet 40 mg = 1 tab, PO, Bedtime metoprolol succinate 25 mg oral capsule, extended release 25 mg = 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 Tobacco smoke exposure: Unable to obtain. Did the Patient Smoke Cigarettes Anytime During the Last 365 Days? Unable to obtain. Cessation Counseling Provided? No. Vital Signs (last 24 hrs) Last Charted Temp Oral 97.9 DegF (FEBRUARY 18 16:52) Heart Rate Apical L 57bpm (FEBRUARY 18 16:52) Resp Rate 18 BRMIN (FEBRUARY 18 16:52) SBP H 142mmHg (FEBRUARY 18 16:52) DBP L 26mmHg (FEBRUARY 18 16:52) SpO2 100 % (FEBRUARY 18 16:52) Weight 59.091 kg (FEBRUARY 18 16:55) Height 165.1 cm (FEBRUARY 18 16:55) BMI 21.68 (FEBRUARY 18 16:55) No I and O Data Available Physical exam: Gen: Alert, no apparent distress Neck: No carotid bruits, No JVD Lungs: CTAB Heart: Regular, S1-S2 Abd: Soft, non tender, positive bowel sounds Ext: No edema, 2+ pulses distally Neuro: No focal deficits Skin: warm, moist Labs (Last four charted values) WBC 6.6 (FEBRUARY 18) Hgb 16.0 (FEBRUARY 18) Hct 48.7 (FEBRUARY 18) Plt 239 (FEBRUARY 18) Na 137 (FEBRUARY 18) K 4.1 (FEBRUARY 18) CO2 25 (FEBRUARY 18) Cl 107 (FEBRUARY 18) Cr 0.87 (FEBRUARY 18) BUN 15 (FEBRUARY 18) Glucose Random 93 (FEBRUARY 18) Ca 9.2 (FEBRUARY 18) PT 12.3 (FEBRUARY 18) INR 0.93 (FEBRUARY 18) PTT H 41.5 (FEBRUARY 18) Troponin C 2.10 (FEBRUARY 18) Electrocardiogram: sinus rhythm with PVCs, right bundle branch block and left posterior fascicular block with inferior Q waves Assessment and plan: Non-STEMI: Risks benefits and indications of cardiac catheterization have been discussed with the patient in detail. He agrees to proceed and this will be performed tomorrow most likely by Dr. Murray. We will try to obtain echocardiogram reports done at [place] prior to the cardiac catheterization tomorrow. I will go ahead and continue his dual antiplatelet therapy statin and beta-blockers for now CAD status post CABG: Non-STEMI as above Hypertension: Continue metoprolol Thank you for the consult. Call with questions. 02/20/2019 [facility] Plan of Care No Data Provided for This Section Social History Social History Date Source Social History TypeResponse Smoking Status Unknown if ever smoked; Exposure to Tobacco Smoke Unable to obtain; Cigarette Smoking Last 365 Days Unable to obtain; Reg Smoking Cessation Counseling No entered on: 02/18/19 02/18/2019 [facility] Social History ElementQualifiersDate Rep orted Smoking . Status Never Smoker Jul 20, 2016 Alcohol Use No. Jul 20, 2016 Alcohol Screening: Yes. Points: 0, Interpretation: Negative Jul 20, 2016 Marital Status: . Jul 20, 2016 Do you drink alcohol? No. 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
--- NOTE | 2020-05-19 22:18 | Diagnostic Imaging Report ---
EXAMINATION: CHEST SINGLE (PORTABLE) INDICATION: ^Y ^left chest wall discomfort ^[id number] ^2045 COMPARISON: None FINDINGS: TUBES and LINES: None. LUNGS: Normal lung volumes. Lungs are clear. No consolidations. PLEURA: No pleural effusion or pneumothorax. HEART AND MEDIASTINUM: The cardiomediastinal silhouette is unremarkable. Sternotomy wires and CABG changes. BONES AND SOFT TISSUES: No acute osseous lesion. Soft tissues are unremarkable. UPPER ABDOMEN: No free air under the diaphragm. IMPRESSION: No acute thoracic radiographic abnormality. Signed by: Tereso Gaffney MD on 05/19/2020 10:14 PM
[2020-05-19 22:50] VITALS: BP 151/92
== END 2020-05-19 22:35 | disposition home or self-care (01) ==
LOC: ER 19:25
DX: U07.1 COVID-19 (principal); R07.89 Other chest pain; R05 Cough; R06.02 Shortness of breath
CPT/HCPCS: 36415; 71045; 80053; 82550; 82553; 83880; 84484; 85025; 93005; 99284